=== PATIENT | male | born 1945 | race American Indian/Alaskan Native ===

== ENCOUNTER 2021-09-19 07:35 | Emergency (ER) | payer SELFPAY ==
[2021-09-19 08:31] LABS: Bacteria,Urine 1+ /HPF (Negative); Hyaline Casts,Urine 2 /LPF; Mucus,Urine FEW /HPF
[2021-09-19 08:56] LABS: Bilirubin,Urine Negative (Negative); Blood,Urine Negative (Negative); Color,Urine Amber (Yellow)
[2021-09-19 08:57] LABS: Protein,Urine <15 mg/dL mg/dL (Negative)
[2021-09-19] MEDS ORDERED: cefTRIAXone/NS 1 GM/50 ML 1 GM/50 ML BAG IV ONE (09:30)
--- NOTE | 2021-09-19 09:54 | Emergency Department Report ---
ED Abdominal Pain HPI - General Chief Complaint: Abdominal Pain Stated Complaint: SWOLLEN ABD Time Seen by Provider: 09/19/21 09:21 Source: patient Mode of arrival: Ambulatory Limitations: No Limitations - History of Present Illness Initial Comments: 75-year-old male with past medical history of hypertension, BPH, and GERD presents to the hospital abdominal swelling x2 weeks. Patient does also complain of some shortness of breath. Patient denies pain, nausea, vomiting, diarrhea, fever, dysuria, or urinary retention. He does have a past history of bladder stone causing obstruction requiring surgical removal and surgical resection of his prostate. Patient currently takes Norvasc, omeprazole, and Flomax. Severity scale (0 -10): 0 - Related Data Previous Rx's Medication Instructions Recorded Last Taken Type cefUROXime [Ceftin] 500 mg PO Q12H 10 Days tab 09/19/21 Unknown Rx Allergies Allergy/AdvReac Type Severity Reaction Status Date / Time No Known Allergies Allergy Verified 09/19/21 07:46 ED Review of Systems ROS: Stated complaint: SWOLLEN ABD Other details as noted in HPI Comment: All other systems reviewed and negative ED Past Medical Hx - Medications Home Medications: Home Medications Medication Instructions Recorded Confirmed Last Taken Type cefUROXime [Ceftin] 500 mg PO Q12H 10 Days tab 09/19/21 Unknown Rx ED Physical Exam - General Limitations: No Limitations - Other Other exam information: General: No acute distress Head: Atraumatic Eyes: normal appearance ENT: Moist mucous membranes Neck: Normal appearance, no midline tenderness Chest: Clear to auscultation bilaterally CV: Regular rate and rhythm Abdomen: Soft, normal bowel sounds, abdominal distention, soft, nontender, no rebound or guarding Back: Normal inspection Extremity: Trace lower extremity edema Neuro: Alert O x 3, no facial asymmetry, speech clear, no gross motor sensory deficit Psych: Appropriate behavior Skin: No rash ED Course Vital Signs 09/19/21 09/19/21 09/19/21 07:44 09:00 11:06 Temperature 97.8 F Pulse Rate 99 H 85 Respiratory 20 18 17 Rate Blood Pressure Blood Pressure 155/94 152/88 [Right] O2 Sat by Pulse 96 99 99 Oximetry 09/19/21 09/19/21 12:13 12:20 Temperature Pulse Rate 68 88 Respiratory 18 Rate Blood Pressure 162/98 Blood Pressure 161/100 [Right] O2 Sat by Pulse 99 Oximetry - Consultations Consultation #1: 09/19/21 14:15 [facility] transfer service called, They state they are at capacity and do not do consults. 14:16 Case d/w WIth [facility] transfer service, awaiting Urologist call. 09/19/21 15:[address] Glover neurologist with [facility]. Patient will need urgent follow-up for stenting. Since stable recommend antibiotics and outpatient follow-up with strict instructions to return if febrile or symptoms worsen. Recommend follow-up with them or alternative urologist. Patient co ntact number [phone] was provided to transfer service to assist with outpatient follow-up ED Medical Decision Making - Lab Data Result diagrams: 09/19/21 08:17 09/19/21 08:17 Lab Results 09/19/21 09/19/21 09/19/21 Range/Units 07:54 08:17 08:17 WBC 11.4 H (4.5-11.0) K/mm3 RBC 4.71 (3.65-5.03) M/mm3 Hgb 13.7 (11.8-15.2) gm/dl Hct 40.4 (35.5-45.6) % MCV 86 (84-94) fl MCH 29 (28-32) pg MCHC 34 (32-34) % RDW 18.5 H (13.2-15.2) % Plt Count 291 (140-440) K/mm3 Lymph % (Auto) 17.2 (13.4-35.0) % [place] % (Auto) 6.1 (0.0-7.3) % Eos % (Auto) 0.8 (0.0-4.3) % Baso % (Auto) 0.4 (0.0-1.8) % Lymph # (Auto) 2.0 (1.2-5.4) K/mm3 [place] # (Auto) 0.7 (0.0-0.8) K/mm3 Eos # (Auto) 0.1 (0.0-0.4) K/mm3 Baso # (Auto) 0.0 (0.0-0.1) K/mm3 Seg Neutrophils % 75.5 H (40.0-70.0) % Seg Neutrophils # 8.6 H (1.8-7.7) K/mm3 PT (12.2-14.9) Sec. INR (0.87-1.13) APTT (24.2-36.6) Sec. Sodium 141 (137-145) mmol/L Potassium 4.4 (3.6-5.0) mmol/L Chloride 104.1 (98-107) mmol/L Carbon Dioxide 24 (22-30) mmol/L Anion Gap 17 mmol/L BUN 26 H (9-20) mg/dL Creatinine 1.4 H (0.8-1.3) mg/dL Estimated GFR 49 ml/min BUN/Creatinine Ratio 19 % Glucose 117 H (75-100) mg/dL Calcium 9.4 (8.4-10.2) mg/dL Total Bilirubin 0.50 (0.1-1.2) mg/dL Direct Bilirubin < 0.2 (0-0.2) mg/dL Indirect Bilirubin 0.3 mg/dL AST 17 (5-40) units/L ALT 18 (7-56) units/L Alkaline Phosphatase 110 (35-129) units/L Total Protein 7.2 (6.3-8.2) g/dL Albumin 3.9 (3.9-5) g/dL Albumin/Globulin Ratio 1.2 % Lipase 38 (13-60) units/L Urine Color Linh (Yellow) Urine Turbidity Clear (Clear) Urine pH 8.0 H (5.0-7.0) Ur Specific [place] 1.005 (1.003-1.030) Urine Protein <15 mg/dl (Negative) mg/dL Urine Glucose (UA) Negative (Negative) mg/dL Urine Ketones Negative (Negative) mg/dL Urine Blood Negative (Negative) Urine Nitrite Negative (Negative) Ur Reducing Substances Not Reportable Urine Bilirubin Negative (Negative) Urine Ictotest Not Reportable Urine Urobilinogen 0.0 (<2.0) mg/dL Ur Leukocyte Esterase Negative (Negative) Urine WBC (Auto) 18.0 H (0.0-6.0) /HPF Urine RBC (Auto) 21.0 (0.0-6.0) /HPF U Epithel Cells (Auto) 7.0 (0-13.0) /HPF Urine Bacteria (Auto) 1+ (Negative) /HPF Hyaline Casts 2 /LPF Urine Mucus Few /HPF //22 Range/Units 09:40 WBC (4.5-11.0) K/mm3 RBC (3.65-5.03) M/mm3 Hgb (11.8-15.2) gm/dl Hct (35.5-45.6) % MCV (84-94) fl MCH (28-32) pg MCHC (32-34) % RDW (13.2-15.2) % Plt Count (140-440) K/mm3 Lymph % (Auto) (13.4-35.0) % [place] % (Auto) (0.0-7.3) % Eos % (Auto) (0.0-4.3) % Baso % (Auto) (0.0-1.8) % Lymph # (Auto) (1.2-5.4) K/mm3 [place] # (Auto) (0.0-0.8) K/mm3 Eos # (Auto) (0.0-0.4) K/mm3 Baso # (Auto) (0.0-0.1) K/mm3 Seg Neutrophils % (40.0-70.0) % Seg Neutrophils # (1.8-7.7) K/mm3 PT 12.8 (12.2-14.9) Sec. INR 0.87 (0.87-1.13) APTT 28.1 (24.2-36.6) Sec. Sodium (137-145) mmol/L Potassium (3.6-5.0) mmol/L Chloride (98-107) mmol/L Carbon Dioxide (22-30) mmol/L Anion Gap mmol/L BUN (9-20) mg/dL Creatinine (0.8-1.3) mg/dL Estimated GFR ml/min BUN/Creatinine Ratio % Glucose (75-100) mg/dL Calcium (8.4-10.2) mg/dL Total Bilirubin (0.1-1.2) mg/dL Direct Bilirubin (0-0.2) mg/dL Indirect Bilirubin mg/dL AST (5-40) units/L ALT (7-56) units/L Alkaline Phosphatase (35-129) units/L Total Protein (6.3-8.2) g/dL Albumin (3.9-5) g/dL Albumin/Globulin Ratio % Lipase (13-60) units/L Urine Color (Yellow) Urine Turbidity (Clear) Urine pH (5.0-7.0) Ur Specific [place] (1.003-1.030) Urine Protein (Negative) mg/dL Urine Glucose (UA) (Negative) mg/dL Urine Ketones (Negative) mg/dL Urine Blood (Negative) Urine Nitrite (Negative) Ur Reducing Substances Urine Bilirubin (Negative) Urine Ictotest Urine Urobilinogen (<2.0) mg/dL Ur Leukocyte Esterase (Negative) Urine WBC (Auto) (0.0-6.0) /HPF Urine RBC (Auto) (0.0-6.0) /HPF U Epithel Cells (Auto) (0-13.0) /HPF Urine Bacteria (Auto) (Negative) /HPF Hyaline Casts /LPF Urine Mucus /HPF - Radiology Data Radiology results: report reviewed CT ABDOMEN AND PELVIS WITH CONTRAST INDICATION: abd distention. Abdominal pain TECHNIQUE: Axial CT images were obtained through the abdomen and pelvis after 100 cc Omni [address] scans at this location are performed using CT dose reduction for ALARA by means of automated exposure control. COMPARISON: None available. FINDINGS: LOWER CHEST: No significant abnormality. LIVER: No significant abnormality. Simple 2 cm cyst anterior hepatic dome GALLBLADDER: No significant abnormality. BILE DUCTS: No significant abnormality. PANCREAS: No significant abnormality. SPLEEN: No significant abnormality. ADRENALS: No significant abnormality. RIGHT KIDNEY and URETER: Several simple cysts. LEFT KIDNEY and URETER: Moderate left hydronephrosis with peripheral calc ification within the left mid ureter wall measuring 9 mm transversely at the level of the pelvic brim on image 139. 3.3 cm simple left renal cyst. STOMACH and SMALL BOWEL: No significant abnormality. COLON: Moderate sigmoid diverticulosis without diverticulitis. APPENDIX: No significant abnormality. PERITONEUM: No free fluid. No free air. No fluid collection. LYMPH NODES: No significant adenopathy. AORTA and ARTERIES: Mild vascular calcifications nonaneurysmal aorta IVC and VEINS: No significant abnormality. URINARY BLADDER: No significant abnormality. REPRODUCTIVE ORGANS: No significant abnormality. ADDITIONAL FINDINGS: None. SKELETAL SYSTEM: Moderate multilevel degenerative changes of lumbar spine. IMPRESSION: 1. Focal calcification left mid ureteral wall resulting in moderate left hydronephrosis. I am concerned for focal transitional cell carcinoma.. 2. Sigmoid diverticulosis without diverticulitis. - Medical Decision Making 75-year male presents to the hospital with abdominal distention without pain. Patient has apical calcification in the mid left ureter resulting in moderate hydro and findings a UTI. No signs of severe sepsis or septic shock at this time. Patient is afebrile, tolerating p.o. without nausea or vomiting, and does not have pain. This was discussed with [facility] urologist as well as the patient and his daughter. Patient and daughter feel comfortable going home with an tibiotics and urgent follow-up with a urologist. Patient will be provided to [place] urologist number as a clinic contact as well as [place] [facility] affiliated with [facility]. Patient will also be provided p.o. antibiotics. Rocephin IV provided in the ED with 500 mL normal saline. Patient and daughter provided strict instructions to return if signs of infection, fever, weakness, pain, or p.o. intolerance. Patient and daughter informed that he will likely need a stent. Urine cultures pending Critical Care Time: No Critical care attestation.: If time is entered above; I have spent that time in minutes in the direct care of this critically ill patient, excluding procedure time. ED Disposition Clinical Impression: Hydronephrosis, left, Left ureteral stone, UTI (urinary tract infection) Disposition: 01 HOME / SELF CARE / HOMELESS Is pt being admited?: No Does the pt Need Aspirin: No Instructions: Urinary Tract Infection, Adult, [id number], Hydronephrosis, Kidney Stones Additional Instructions: Take the medication as prescribed. Follow-up with your doctor or doctor/clinic provided. Return if symptoms worsen as indicated by your discharge instructions . Follow-up with the urologist either with [place] or affiliated with [place] [facility] at [facility] If symptoms worsen including fever, nausea, vomiting, weakness, or pain please do not hesitate to go to the hospital immediately. You are welcome to return here for care however, I encourage you to go to [facility] if symptoms worsen because they have urology coverage. Prescriptions: cefUROXime [Ceftin] 500 mg PO Q12H 10 Days tab Referrals: TUSHAR NOLEN MD [Staff Physician] - 24 Hours (Urology (24-48hrs)) MD Adalberto [Other] - 24 Hours ([facility] (24-48 hrs)) Time of Disposition: 15:18
[2021-09-19 11:06] LABS: INR 0.87 (0.87-1.13)
[2021-09-19 11:07] LABS: Partial Thromboplastin Time 28.1 Sec. (24.2-36.6)
[2021-09-19 12:00] LABS: Basophils % (Auto) 0.4 % (0.0-1.8); Eosinophils # (Auto) 0.1 K/mm3 (0.0-0.4); Eosinophils % (Auto) 0.8 % (0.0-4.3); Hematocrit 40.4 % (35.5-45.6); Hemoglobin 13.7 gm/dl (11.8-15.2); Lymphocytes % (Auto) 17.2 % (13.4-35.0); Mean Corpuscular HGB Conc 34 % (32-34); Mean Corpuscular Volume 86 fl (84-94); Monocytes # (Auto) 0.7 K/mm3 (0.0-0.8); Monocytes % (Auto) 6.1 % (0.0-7.3); Platelet Count 291 K/mm3 (140-440); Red Blood Count 4.71 M/mm3 (3.65-5.03); Red Cell Distribution Width 18.5 % (13.2-15.2)
[2021-09-19] MEDS ORDERED: amLODIPine 5 MG TAB PO ONE (12:06)
[2021-09-19 12:21] LABS: Alanine Aminotransferase 18 units/L (7-56); Albumin 3.9 g/dL (3.9-5); BUN/Creatinine Ratio 19; Blood Urea Nitrogen 26 mg/dL (9-20); Calcium 9.4 mg/dL (8.4-10.2); Hemolysis Index 35
[2021-09-19 12:23] LABS: Bilirubin,Direct < 0.2 mg/dL (0-0.2)
--- NOTE | 2021-09-19 13:27 | Cat Scan Report ---
CT ABDOMEN AND PELVIS WITH CONTRAST INDICATION: abd distention. Abdominal pain TECHNIQUE: Axial CT images were obtained through the abdomen and pelvis after 100 cc Omni [address] scans at this location are performed using CT dose reduction for ALARA by means of automated expos ure control. COMPARISON: None available. FINDINGS: LOWER CHEST: No significant abnormality. LIVER: No significant abnormality. Simple 2 cm cyst anterior hepatic dome GALLBLADDER: No significant abnormality. BILE DUCTS: No significant abnormality. PANCREAS: No significant abnormality. SPLEEN: No significant abnormality. ADRENALS: No significant abnormality. RIGHT KIDNEY and URETER: Several simple cysts. LEFT KIDNEY and URETER: Moderate left hydronephrosis with peripheral calcification within the left mi d ureter wall measuring 9 mm transversely at the level of the pelvic brim on image 139. 3.3 cm simple left renal cyst. STOMACH and SMALL BOWEL: No significant abnormality. COLON: Moderate sigmoid diverticulosis without diverticulitis. APPENDIX: No significant abnormality. PERITONEUM: No free fluid. No free air. No fluid collection. LYMPH NODES: No significant adenopathy. AORTA and ARTERIES: Mild vascular calcifications nonaneurysmal aorta IVC and VEINS: No significant abnormality. URINARY BLADDER: No significant abnormality. REPRODUCTIVE ORGANS: No significant abnormality. ADDITIONAL FINDINGS: None. SKELETAL SYSTEM: Moderate multilevel degenerative changes of lumbar spine. IMPRESSION: 1. Focal calcification left mid ureteral wall resulting in moderate left hydronephrosis. I am concern ed for focal transitional cell carcinoma.. 2. Sigmoid diverticulosis without diverticulitis. Signer Name: Huy Sandoval MD Signed: 09/19/2021 1:23 PM Workstation Name: [id number]
--- NOTE | 2021-09-19 13:32 | XRay Report ---
CHEST 1 VIEW 09/19/2021 1:15 PM INDICATION / CLINICAL INFORMATION: sob. COMPARISON: None available. FINDINGS: SUPPORT DEVICES: None. HEART / MEDIASTINUM: No significant abnormality. LUNGS / PLEURA: No significant pulmonary or pleural abnormality. No pneumothorax. ADDITIONAL FINDINGS: No significant additional findings. IMPRESSION: 1. No acute findings. Signer Name: Alejandro Ayon MD Signed: 09/19/2021 1:28 PM Workstation Name: [id number]
[2021-09-19] MEDS ORDERED: SODIUM CHLORIDE 0.9% 500 ML 500 ML IV ONE (14:08)
[2021-09-19 14:55] VITALS: BP 135/90
== END 2021-09-19 16:08 | disposition home or self-care (01) ==
LOC: ED 07:35
DX: N13.39 Other hydronephrosis (principal); N20.1 Calculus of ureter; N39.0 Urinary tract infection, site not specified
CPT/HCPCS: 36415; 71045; 74177; 80048; 80076; 81001; 83690; 85025; 85610; 85730; 87076; 87086; 87186; 96365; 99284; J0696; J7040; Q9967

== ENCOUNTER 2021-12-02 07:33 | Emergency (ER) | payer MEDICAID ==
[2021-12-02] MEDS ORDERED: ALBUTEROL 2.5 MG/3 ML NEBU IH ONE (09:57)
[2021-12-02] MEDS ORDERED: IPRATROPIUM 0.02% NEBU 2.5 ML IH ONE (09:57)
[2021-12-02 10:15] LABS: Basophils # (Auto) 0.1 K/mm3 (0.0-0.1); Basophils % (Auto) 0.5 % (0.0-1.8); Eosinophils # (Auto) 0.2 K/mm3 (0.0-0.4); Eosinophils % (Auto) 1.8 % (0.0-4.3); Hematocrit 42.3 % (35.5-45.6); Hemoglobin 13.8 gm/dl (11.8-15.2); Lymphocytes # (Auto) 1.9 K/mm3 (1.2-5.4); Lymphocytes % (Auto) 17.6 % (13.4-35.0); Mean Corpuscular HGB Conc 33 % (32-34); Mean Corpuscular Volume 86 fl (84-94); Monocytes # (Auto) 0.8 K/mm3 (0.0-0.8); Monocytes % (Auto) 7.7 % (0.0-7.3); Platelet Count 332 K/mm3 (140-440); Red Blood Count 4.92 M/mm3 (3.65-5.03); Red Cell Distribution Width 18.1 % (13.2-15.2)
--- NOTE | 2021-12-02 10:21 | XRay Report ---
CHEST 1 VIEW 12/02/2021 10:04 AM INDICATION / CLINICAL INFORMATION: Dyspnea. COMPARISON: 09/19/2021 FINDINGS: SUPPORT DEVICES: None. HEART / MEDIASTINUM: No significant abnormality. LUNGS / PLEURA: Suspected small right pleural effusion. Bibasilar atelectasis No pneumothorax. ADDITIONAL FINDINGS: No significant additional findings. IMPRESSION: 1. Suspected small right pleural effusion. Otherwise no acute cardiopulmonary abnormality. Signer Name: Kee Martinez MD Signed: 12/02/2021 10:16 AM Workstation Name: [id number]
[2021-12-02 10:22] LABS: INR 0.86 (0.87-1.13)
[2021-12-02 10:41] LABS: Alanine Aminotransferase 12 units/L (7-56); BUN/Creatinine Ratio 13; Blood Urea Nitrogen 27 mg/dL (9-20); Calcium 8.9 mg/dL (8.4-10.2); Hemolysis Index 3
--- NOTE | 2021-12-02 12:55 | Cat Scan Report ---
CTA CHEST WITH CONTRAST INDICATION / CLINICAL INFORMATION: SOB 100ml of [id number] . TECHNIQUE: Axial CT images were obtained through the chest after injection of IV contrast. 3 plane SD P and/or 3D reconstructions were produced. All CT scans at this location are performed using CT dose reduction for ALARA by means of automated exposure control. COMPARISON: None available. FINDINGS: PULMONARY EMBOLUS: None. Evaluation is limited by respiratory motion. 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 HEART: No significant abnormality. CORONARY ARTERY CALCIFICATION: Present -- Moderate. MEDIASTINUM / VILLA: No significant abnormality. PLEURA: No pleural effusion. No pneumothorax. LUNGS: Evaluation of the pulmonary parenchyma is limited by respiratory motion. No focal consolidatio n. Scattered bronchial wall thickening. 5 mm left upper lobe nodule on image 117 series 3. ADDITIONAL FINDINGS: None. UPPER ABDOMEN: Atrophic left kidney. SKELETAL STRUCTURES: No significant osseous abnormality. IMPRESSION: 1. No CT evidence for pulmonary embolism. 2. Bronchial wall thickening is suggestive of small airways disease. 3. Single incidental pulmonary nodule(s) in the left upper lobe measuring 5 mm with solid characteri stics. Recommendation according to Fleischner Society 2017 Guidelines: Low Risk Patient: No routine f ollow-up; High Risk Patient: Optional CT at 12 months. Signer Name: Kee Martinez MD Signed: 12/02/2021 12:50 PM Workstation Name: [employer]
--- NOTE | 2021-12-02 13:03 | Emergency Department Report ---
ED Shortness of Breath HPI - General Chief Complaint: Dyspnea/Respdistress Stated Complaint: WHEEZING /COUGH Time Seen by Provider: 12/02/21 09:57 Source: patient Mode of arrival: Ambulatory Limitations: No Limitations - History of Present Illness Initial Comments: t reports worsening sob x1 week. only med hx is a kidney stone no chest pain no feve, history of smoking MD Complaint: shortness of breath -: days(s) Improves With: rest Worsens With: exertion Associated Symptoms: denies other symptoms - Related Data Home Oxygen Therapy: No Previous Rx's Medication Instructions Recorded Last Taken Type cefUROXime [Ceftin] 500 mg PO Q12H 10 Days tab 09/19/21 Unknown Rx Albuterol Mdi (or & Nicu Only) 2 puff IH QID PRN #8.5 gram 12/02/21 Unknown Rx [ProAir HFA Inhaler] Brompheniramine/Pseudoephed/Dm 5 ml PO Q6HR PRN #120 syrup 12/02/21 Unknown Rx [Bromfed Dm Cough Syrup] levoFLOXacin [Levaquin TAB] 500 mg PO QDAY #7 tablet 12/02/21 Unknown Rx Allergies Allergy/AdvReac Type Severity Reaction Status Date / Time No Known Allergies Allergy Verified 12/02/21 07:53 ED Review of Systems ROS: Stated complaint: WHEEZING /COUGH Other details as noted in HPI Constitutional: denies: chills, fever Eyes: denies: eye pain, eye discharge, vision change ENT: denies: ear pain, throat pain Respiratory: denies: cough, shortness of breath, wheezing Cardiovascular: denies: chest pain, palpitations Endocrine: no symptoms reported Gastrointestinal: denies: abdominal pain, nausea, diarrhea Genitourinary: denies: urgency, dysuria Musculoskeletal: denies: back pain, joint swelling, arthralgia Skin: denies: rash, lesions Neurological: denies: headache, weakness, paresthesias Psychiatric: denies: anxiety, depression Hematological/Lymphatic: denies: easy bleeding, easy bruising ED Past Medical Hx - Past Medical History Hx Hypertension: Yes Hx CVA: No - Social History Smoking Status: Never Smoker - Medications Home Medications: Home Medications Medication Instructions Recorded Confirmed Last Taken Type cefUROXime [Ceftin] 500 mg PO Q12H 10 Days tab 09/19/21 Unknown Rx Albuterol Mdi (or & Nicu Only) 2 puff IH QID PRN #8.5 gram 12/02/21 Unknown Rx [ProAir HFA Inhaler] Brompheniramine/Pseudoephed/Dm 5 ml PO Q6HR PRN #120 syrup 12/02/21 Unknown Rx [Bromfed Dm Cough Syrup] levoFLOXacin [Levaquin TAB] 500 mg PO QDAY #7 tablet 12/02/21 Unknown Rx ED Physical Exam - General Limitations: No Limitations General appearance: alert, in no apparent distress - Head Head exam: Present: atraumatic, normocephalic - Eye Eye exam: Present: normal appearance - ENT ENT exam: Present: mucous membranes moist - Neck Neck exam: Present: normal inspection - Respiratory Respiratory exam: Present: normal lung sounds bilaterally, wheezes. Absent: respiratory distress - Cardiovascular Cardiovascular Exam: Present: regular rate, normal rhythm. Absent: systolic murmur, diastolic murmur, rubs, gallop - GI/Abdominal GI/Abdominal exam: Present: soft, normal bowel sounds - Rectal Rectal exam: Present: deferred - Extremities Exam Extremities exam: Present: normal inspection - Back Exam Back exam: Present: normal inspection - Neurological Exam Neurological exam: Present: alert, oriented X3 - Psychiatric Psychiatric exam: Present: normal affect, normal mood - Skin Skin exam: Present: warm, dry, intact, normal color. Absent: rash ED Course Vital Signs 12/02/21 12/02/21 12/02/21 07:49 09:40 09:45 Temperature 98.9 F Pulse Rate 83 90 Respiratory 18 25 H Rate Blood Pressure 181/101 Blood Pressure 148/83 [Left] O2 Sat by Pulse 100 98 98 Oximetry 12/02/21 10:01 Temperature Pulse Rate 87 Respiratory 26 H Rate Blood Pressure 178/89 Blood Pressure [Left] O2 Sat by Pulse 98 Oximetry ED Medical Decision Making - Lab Data Result diagrams: 12/02/21 10:06 12/02/21 10:06 - EKG Data -: EKG Interpreted by Me EKG shows normal: sinus rhythm - Radiology Data Radiology results: report reviewed, image reviewed - Medical Decision Making work up showed normal wbc , x ray clear, bnp negative CTA showed bronchitis abx given and rt Critical care attestation.: If time is entered above; I have spent that time in minutes in the direct care of this critically ill patient, excluding procedure time. ED Disposition Clinical Impression: SOB (shortness of breath), Acute bronchitis Disposition: HOME / SELF CARE / HOMELESS Is pt being admited?: No Does the pt Need Aspirin: No Condition: Stable Instructions: Acute Bronchitis (ED), Shortness of Breath, Adult, [id number], Acute Bronchitis, Adult Prescriptions: Brompheniramine/Pseudoephed/Dm [Bromfed Dm Cough Syrup] 5 ml PO Q6HR PRN #120 syrup PRN Reason: Cough levoFLOXacin [Levaquin TAB] 500 mg PO QDAY #7 tablet Albuterol Mdi (or & Nicu Only) [ProAir HFA Inhaler] 2 puff IH QID PRN #8.5 gram PRN Reason: Shortness Of Breath Referrals: PERRY GARDNER MD [Primary Care Provider] - 3-5 Days
[2021-12-02 13:16] VITALS: BP 154/79
--- NOTE | 2021-12-03 09:23 | Electrocardiograph Report ---
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
== END 2021-12-02 13:15 | disposition home or self-care (01) ==
LOC: ED 07:33
DX: J20.9 Acute bronchitis, unspecified (principal); I10 Essential (primary) hypertension; Z79.899 Other long term (current) drug therapy
CPT/HCPCS: 36415; 71045; 71275; 80053; 82550; 82553; 83690; 83735; 83880; 84484; 85025; 85610; 93005; 94640; 99284; Q9967; 94644